=== PATIENT | male | born 1955 | race Caucasian/White ===

== ENCOUNTER 2017-06-04 12:16 | Observation (INO) ==
[2017-06-04] MEDS ORDERED: GI Cocktail 40 ML EACH PO ONE (12:28)
--- NOTE | 2017-06-04 12:32 | Emergency Department Note ---
Disposition Clinical Impression: Abdominal pain, Pancreatitis Disposition: Admitted As Inpatient Condition: Fair Referrals: Rain Landry, VASCULAR ULTRASOUND TECHNOLOGIST [Primary Care Provider] - Forms: ED Satisfaction Letter, Work/School Release Time of Disposition: 13:58 (gary corey [facility]) Abdominal Pain HPI - General Chief Complaint: ED Abdominal Pain Stated Complaint: abdominal pain Time Seen by Provider: 06/04/17 12:19 Source: patient Mode of arrival: ambulatory Limitations: no limitations Nursing Notes Reviewed: Yes Vital Signs Reviewed: Yes - History of Present Illness HPI Narrative: Patient's had a possible 24 hours of epigastric pain worsening until this morning when he got up and is radiating around into the back patient states it reminds him of when he had pancreatitis patient states that was about 2 years ago he denies fever chills N this is a states that the pain is worse with eating patient states is epigastric with radiation into the back he denies anything that makes it better anything makes it worse he recently stopped taking his proton aches and exam and a couple other medications he cannot recall the names of he states that he did not think he needed them he says now he has "maybe I do need of denies fever chills lightheadedness dizziness denies any diarrhea melena hematochezia hematemesis patient states nothing seems to be relieving the pain at this time as a result he is here for evaluation for the possibility of pancreatitis Pt Subjective Complaint: abdominal pain Onset (ago): day(s) (1) Consistency: constant Location: epigastric Pain Scale: 9 Quality: stabbing Radiation: epigastric Migration to: no migration Improves with: nothing Worsens with: eating Context: history of similar episodes (2 years ago ), other (stopped medications) Associated symptoms: Reports: nausea. Denies: vomiting, diarrhea, fever, chills , constipation, dysuria, hematemesis, hematochezia, melena, hematuria, anorexia , syncope Treatments prior to arrival: antacids (but recently stopped) - Related Data Home Medications Medication Instructions Recorded Confirmed Atenolol [Tenormin] 25 mg PO DAILY 04/07/15 06/04/17 BuPROPion 06/04/17 Allergies Allergy/AdvReac Type Severity Reaction Status Date / Time No Known Allergies Allergy Verified 06/04/17 12:17 All systems ED: reviewed and negative except as stated. Review of Systems: As Per HPI Constitutional: Denies: fever, chills Eyes: Denies: eye pain ENT ED: Denies: ear pain Cardiovascular: Denies: chest pain Respiratory: Denies: cough Gastrointestinal: Reports: abdominal pain, nausea, other (epigastric pain) Genitourinary: Denies: urgency, dysuria, frequency Musculoskeletal: Denies: back pain Integumentary: Denies: rash Neurological: Denies: headache Psychiatric: Denies: anxiety, depression Endocrine: Denies: fatigue Hematological/Lymphatic: Denies: easy bleeding Allergic/Immunologic: Denies: facial swelling Abdominal Pain PMH - Past Medical History Medical history: Reports: GERD, hypertension Psychiatric history: Reports: no psych history - Social History Smoking status: Current every day smoker Alcohol use: Reports: none Drug use: Reports: none Physical Exam - General Limitations: no limitations General appearance: alert, in no apparent distress, anxious - Head Head exam: atraumatic, normocephalic, normal inspection - Eye Eye exam: Present: normal appearance, PERRL, EOMI - ENT ENT exam: normal exam, normal oropharynx, mucous membranes moist, normal external ear exam - Neck Neck exam: Present: normal inspection, full ROM, trachea midline - Chest Chest inspection: Present: normal inspection, symmetric chest wall rise - Respiratory Respiratory exam: Present: normal lung sounds bilaterally - Cardiovascular Cardiovascular exam: Present: regular rate, normal rhythm, normal heart sounds - Abdominal Exam Abdominal exam: Present: soft, tenderness, guarding, diminished bowel sounds. Absent: mass, pulsatile mass - Extremities Exam Extremities exam: Present: normal inspection, full ROM, normal capillary refill. Absent: tenderness, pedal edema, joint swelling, calf tenderness - Expanded Lower Extremity Exam Neurovascular/Tendon exam: Present: normal capillary refill, normal fine/light touch Gait: observed and normal - Back Exam Back exam: Present: normal inspection, full ROM. Absent: muscle spasm - Neurological Exam Neurological exam: Present: alert, oriented X3, CN II-XII intact, normal gait - Psychiatric Psychiatric exam: Present: normal affect, normal mood - Skin Skin exam: Present: warm, dry, intact, normal color Course Course Narrative: Seen complaining of epigastric pain given a GI cocktail labs and CT are pending - Reevaluation(s) Reevaluation #1: Patient clinically has pancreatitis I spoke with patient he is agreed for admission patient be transferred to [facility] Dr. Gary Michelle by mouth clear liquids ice chips only Vital Signs Temperature 97.1 F L 06/04/17 12:19 Pulse Rate 64 06/04/17 12:19 Respiratory Rate 17 06/04/17 12:19 Blood Pressure 151/87 06/04/17 12:19 O2 Sat by Pulse Oximetry 99 06/04/17 12:19 Temperature 97.1 F L 06/04/17 12:19 Pulse Rate 64 06/04/17 12:19 Respiratory Rate 17 06/04/17 12:19 Blood Pressure 151/87 06/04/17 12:19 O2 Sat by Pulse Oximetry 99 06/04/17 12:19 Oxygen Delivery Oxygen Delivery Room Air Abdominal Pain - Differential Diagnosis Differential Diagnosis: Likely: abdominal pain non-specific, constipation, gastroenteritis, pancreatitis - Medical Records Medical records reviewed: Yes I reviewed the patient's medical records. - Lab Data Lab results reviewed: Yes I reviewed the patient's lab results. Result diagrams: 06/04/17 12:45 06/04/17 12:45 Lab Results 06/04/17 06/04/17 06/04/17 Range/Units 12:45 12:45 12:45 WBC 9.4 (4.3-11.1) K/mcL RBC 4.72 (4.19-5.50) M/mcL Hgb 16.0 (12.9-16.9) g/dL Hct 45.1 (37.5-50.1) % MCV 95.6 (83.0-100.0) fL MCH 33.9 H (28.0-33.3) pg MCHC 35.5 (31.6-35.5) g/dL RDW 12.6 (11.5-14.5) % Plt Count 234 (140-400) K/mcL MPV 9.6 (9.4-12.4) fL Immature Gran % 0.4 (0-4) % Seg Neutrophils % 82.9 % Lymphocytes % 8.9 % Monocytes % 7.1 % Eosinophils % 0.1 % Basophils % 0.6 % Neutrophils # 7.8 (1.6-8.9) K/mcL Lymphocytes # 0.8 (0.6-4.6) K/mcL Monocytes # 0.7 (0.0-1.3) K/mcL Eosinophils # 0.0 (0.0-0.6) K/mcL Basophils # 0.1 (0.0-0.2) K/mcL PT 10.6 (9.4-12.1) Seconds INR 1.0 APTT 31.3 (26.0-36.0) Seconds Sodium 142 (136-145) mEq/L Potassium 4.4 (3.5-4.5) mEq/L Chloride 109 (98-109) mEq/L Carbon Dioxide 24 (19-29) mEq/L BUN 15 (8-26) mg/dL Creatinine 0.81 (0.72-1.25) mg/dL Est GFR ( Amer) > 60 (> 60) Est GFR (Non-Af Amer) > 60 (> 60) BUN/Creatinine Ratio 19 (6-26) Glucose 117 H (70-99) mg/dL Calculated Osmolality 296 (280-300) Lactic Acid (0.5-2.2) mmol/L Calcium 10.0 (8.6-10.8) mg/dL Total Bilirubin 0.5 (0.2-1.2) mg/dL AST 21 (5-34) Units/L ALT 22 (0-55) Units/L Alkaline Phosphatase 126 (38-126) Units/L Serum Total Protein 7.6 (6.0-8.3) g/dL Albumin 3.9 (3.5-5.0) g/dL Globulin 3.7 H (2.4-3.5) g/dL Albumin/Globulin Ratio 1.1 (1.1-2.2) Urine Color (Yellow) Urine Clarity (Clear) Urine pH (5.0-8.0) pH Units Ur Specific [place] (1.010-1.025) Urine Protein (Neg-Trace) mg/dL Urine Glucose (UA) (Normal) mg/dL Urine Ketones (Negative) mg/dL Urine Blood (Negative) Urine Nitrite (Negative) Urine Bilirubin (Negative) Urine Urobilinogen (Normal) mg/dL Ur Leukocyte Esterase (Negative) Urine Microscopic WBC (0-3) per hpf Ur Squamous Epith Cells (None-Few) per lpf Urine Bacteria (None-Few) per hpf Urine Mucus (Few) Ur Culture Indicated? (NO) 06/04/17 06/04/17 Range/Units 12:45 13:14 WBC (4.3-11.1) K/mcL RBC (4.19-5.50) M/mcL Hgb (12.9-16.9) g/dL Hct (37.5-50.1) % MCV (83.0-100.0) fL MCH (28.0-33.3) pg MCHC (31.6-35.5) g/dL RDW (11.5-14.5) % Plt Count (140-400) K/mcL MPV (9.4-12.4) fL Immature Gran % (0-4) % Seg Neutrophils % % Lymphocytes % % Monocytes % % Eosinophils % % Basophils % % Neutrophils # (1.6-8.9) K/mcL Lymphocytes # (0.6-4.6) K/mcL Monocytes # (0.0-1.3) K/mcL Eosinophils # (0.0-0.6) K/mcL Basophils # (0.0-0.2) K/mcL PT (9.4-12.1) Seconds INR APTT (26.0-36.0) Seconds Sodium (136-145) mEq/L Potassium (3.5-4.5) mEq/L Chloride (98-109) mEq/L Carbon Dioxide (19-29) mEq/L BUN (8-26) mg/dL Creatinine (0.72-1.25) mg/dL Est GFR ( Amer) (> 60) Est GFR (Non-Af Amer) (> 60) BUN/Creatinine Ratio (6-26) Glucose (70-99) mg/dL Calculated Osmolality (280-300) Lactic Acid 0.9 (0.5-2.2) mmol/L Calcium (8.6-10.8) mg/dL Total Bilirubin (0.2-1.2) mg/dL AST (5-34) Units/L ALT (0-55) Units/L Alkaline Phosphatase (38-126) Units/L Serum Total Protein (6.0-8.3) g/dL Albumin (3.5-5.0) g/dL Globulin (2.4-3.5) g/dL Albumin/Globulin Ratio (1.1-2.2) Urine Color Yellow (Yellow) Urine Clarity Clear (Clear) Urine pH 5.5 (5.0-8.0) pH Units Ur Specific [place] >= 1.030 H (1.010-1.025) Urine Protein 30 H (Neg-Trace) mg/dL Urine Glucose (UA) Normal (Normal) mg/dL Urine Ketones Trace H (Negative) mg/dL Urine Blood Negative (Negative) Urine Nitrite Negative (Negative) Urine Bilirubin Small H (Negative) Urine Urobilinogen Normal (Normal) mg/dL Ur Leukocyte Esterase Negative (Negative) Urine Microscopic WBC 0-3 (0-3) per hpf Ur Squamous Epith Cells Few (None-Few) per lpf Urine Bacteria Few (None-Few) per hpf Urine Mucus Many H (Few) Ur Culture Indicated? NO (NO) - Radiology Data Radiology results reviewed: Yes I reviewed the patient's radiology results. - EKG Data EKG attestation: Yes I reviewed and interpreted this EKG. EKG results narrative: Normal sinus rhythm rate 60 CT 160 QRS 84 QT 364 axis [id number] Q waves present in the septal leads Critical Care Time Critical Care Time: No
[2017-06-04 12:54] LABS: Basophils # 0.1 K/mcL (0.0-0.2); Basophils % 0.6 %; Eosinophils % 0.1 %; Hematocrit 45.1 % (37.5-50.1); Immature Granulocytes % 0.4 % (0-4); Lymphocytes # 0.8 K/mcL (0.6-4.6); Lymphocytes % 8.9 %; Mean Corpuscular HGB Conc 35.5 g/dL (31.6-35.5); Mean Corpuscular Hemoglobin 33.9 pg (28.0-33.3); Mean Corpuscular Volume 95.6 fL (83.0-100.0); Mean Platelet Volume 9.6 fL (9.4-12.4); Monocytes # 0.7 K/mcL (0.0-1.3); Monocytes % 7.1 %; Neutrophils # 7.8 K/mcL (1.6-8.9); Platelet Count 234 K/mcL (140-400); Red Blood Count 4.72 M/mcL (4.19-5.50); Red Cell Distribution Width 12.6 % (11.5-14.5); Segmented Neutrophils % 82.9 %
[2017-06-04 12:56] LABS: Prothrombin Time 10.6 Seconds (9.4-12.1)
[2017-06-04 12:58] LABS: Activated Partial Thrombo Time 31.3 Seconds (26.0-36.0)
[2017-06-04 13:06] LABS: Alanine Aminotransferase 22 Units/L (0-55); Albumin 3.9 g/dL (3.5-5.0); Albumin/Globulin Ratio 1.1 (1.1-2.2); Alkaline Phosphatase 126 Units/L (38-126); Aspartate Amino Transferase 21 Units/L (5-34); BUN/Creatinine Ratio 19 (6-26); Bilirubin,Total 0.5 mg/dL (0.2-1.2); Blood Urea Nitrogen 15 mg/dL (8-26); Carbon Dioxide 24 mEq/L (19-29); Chloride 109 mEq/L (98-109); Globulin 3.7 g/dL (2.4-3.5); Glucose 117 mg/dL (70-99); Osmolality,Calculated 296 (280-300); Potassium 4.4 mEq/L (3.5-4.5); Sodium 142 mEq/L (136-145); Total Protein 7.6 g/dL (6.0-8.3); eGFR For African Americans > 60 (> 60); eGFR For Non-African Americans > 60 (> 60)
[2017-06-04 13:18] LABS: Bilirubin,Urine Small (Negative); Blood,Urine Negative (Negative); Clarity,Urine Clear (Clear); Color,Urine Yellow (Yellow); Glucose,Urine (UA) Normal (Normal); Ketones,Urine Trace mg/dL (Negative); Leukocyte Esterase,Urine Negative (Negative); Nitrite,Urine Negative (Negative); PH,Urine 5.5 pH Units (5.0-8.0); Protein,Urine 30 mg/dL (Neg-Trace); Specific Gravity,Urine >= 1.030 (1.010-1.025); Urobilinogen,Urine Normal (Normal)
[2017-06-04 13:25] LABS: Squamous Epithelial Cell,Urine Few per lpf (None-Few); WBC,Urine 0-3 per hpf (0-3)
[2017-06-04 13:26] LABS: Bacteria,Urine Few per hpf (None-Few); Mucus,Urine Many (Few)
[2017-06-04] MEDS ORDERED: Naloxone 0.4 MG/ML INJ IVP PRN ×2 (14:21)
[2017-06-04] MEDS ORDERED: Thiamine (B-1) 100 MG in D5% in Water 50 ML IVPB ONE (14:21)
[2017-06-04] MEDS ORDERED: MVI, adult with vitamin K 10 ML in 0.9 % Sodium Chloride 1,000 ML IVC ONE (14:21)
[2017-06-04] MEDS ORDERED: Pantoprazole 40 MG VIAL IVP ONE (14:21)
[2017-06-04] MEDS ORDERED: *HR* HYDROmorphone (PF) 1 MG/ML SYRINGE IVP ONE (14:21)
[2017-06-04] MEDS ORDERED: Ondansetron 4 MG/2 ML VIAL IVP ONE (14:21)
[2017-06-04] MEDS ORDERED: 0.9 % Sodium Chloride 1,000 ML IVC SCH (14:21)
[2017-06-04] MEDS ORDERED: Ondansetron 4 MG/2 ML VIAL IVP PRN (14:21)
[2017-06-04] MEDS ORDERED: Magnesium Sulfate 2 GM in D5% in Water 100 ML IVPB ONE (14:30)
[2017-06-04] MEDS: 0.9 % Sodium Chloride 1,000 ML IVC SCH ×2 (14:54→21:48)
[2017-06-04] MEDS: *HR* HYDROmorphone (PF) 1 MG/ML SYRINGE IVP PRN (19:00)
[2017-06-05] MEDS: 0.9 % Sodium Chloride 1,000 ML IVC SCH (05:31)
[2017-06-05 06:54] LABS: Basophils % 0.4 %; Eosinophils # 0.1 K/mcL (0.0-0.6); Eosinophils % 0.9 %; Hemoglobin 13.8 g/dL (12.9-16.9); Immature Granulocytes % 0.3 % (0-4); Lymphocytes % 14.7 %; Mean Corpuscular HGB Conc 35.4 g/dL (31.6-35.5); Mean Corpuscular Hemoglobin 34.2 pg (28.0-33.3); Mean Corpuscular Volume 96.5 fL (83.0-100.0); Mean Platelet Volume 10.3 fL (9.4-12.4); Monocytes # 0.7 K/mcL (0.0-1.3); Monocytes % 9.6 %; Neutrophils # 5.2 K/mcL (1.6-8.9); Platelet Count 181 K/mcL (140-400); Red Blood Count 4.04 M/mcL (4.19-5.50); Red Cell Distribution Width 12.6 % (11.5-14.5); Segmented Neutrophils % 74.1 %
[2017-06-05 07:13] LABS: BUN/Creatinine Ratio 15 (6-26); Blood Urea Nitrogen 11 mg/dL (8-26); Calcium 8.6 mg/dL (8.6-10.8); Carbon Dioxide 22 mEq/L (19-29); Chloride 110 mEq/L (98-109); Glucose 84 mg/dL (70-99); Lipase 561 Units/L (8-78); Osmolality,Calculated 291 (280-300); Potassium 3.8 mEq/L (3.5-4.5); Sodium 141 mEq/L (136-145); Triglycerides 101 mg/dL (< 150); eGFR For African Americans > 60 (> 60); eGFR For Non-African Americans > 60 (> 60)
[2017-06-05] MEDS: *HR* HYDROmorphone (PF) 1 MG/ML SYRINGE IVP PRN ×3 (07:35→21:18)
[2017-06-05] MEDS: Multivit/Ca/Min/Fe/FA 1 TAB TABLET PO SCH (09:07)
[2017-06-05] MEDS: Thiamine (B-1) 100 MG TABLET PO SCH (09:08)
[2017-06-05] MEDS: Folic Acid 1 MG TABLET PO SCH (09:08)
[2017-06-05] MEDS: Pantoprazole 40 MG VIAL IVP SCH (09:08)
--- NOTE | 2017-06-05 11:39 | Internal Med History&Physical ---
Date of Encounter: 06/05/17 Time of Encounter: 11:05 Assessment and Plan (1) Pancreatitis Current visit: Yes Status: Acute His abdominal pain has significantly improved since admission. Will continue with IV fluids and analgesics when necessary. Will advance diet as tolerated. Qualifiers: Chronicity: acute Pancreatitis type: unspecified pancreatitis type Acute pancreatitis complication: no infection or necrosis Qualified Code(s): K85.90 - Acute pancreatitis without necrosis or infection, unspecified Internal Medicine - H&P: HPI Chief complaint: Abdominal pain Admitted From: Home Plans for Post Hospital Care: Home History of present illness: Mr. 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 Pain progressively worsened to level 10/10 so he decided to come to emergency room. He was evaluated and found to have evidence of acute on chronic pancreatitis. He was admitted to [facility] floor for ongoing care needs. He states he had a previous episode of pancreatitis in 2014 and was told it was possibly due to H. pylori. He has seen Dr. Hunter and reports having EGD and colonoscopy done. He reports no liver or gallbladder disease. He drinks an occasional one to 2 beers and reports the evening of June 01 he had 2 beers. He does not have hypertriglyceridemia. He states his abdominal pain has decreased to 5/10. He has no nausea or vomiting. Past Med Surg Social Fam HX - Past Medical History Medical history: GERD, hypertension Psychiatric history: no psych history - Past Surgical History Surgical History: no surgical history - Social History Smoking Status: Current every day smoker Packs per day: 0.5 Smokeless Tobacco Status: No Alcohol use: none Drug use: none - Family History Father Living Status: Hx Family Cancer: Yes Mother Living Status: Hx Family Neuromuscular Disorders: Yes (parkinson's) Internal Medicine - H&P: Meds Atenolol [Tenormin] 25 mg PO DAILY 04/07/15 [History] BuPROPion 150 mg PO DAILY 06/04/17 [History] 3 Allergy/AdvReac Type Severity Reaction Status Date / Time No Known Allergies Allergy Verified 06/04/17 12:17 All Systems PM: A 10-system review of systems was performed and is negative for pertinent findings except as documented above in the HPI. Review of systems: Gen.: He states his weight has been stable the past year Cardiovascular: Has history of hypertension but denies [place] heart failure angina DVT or pulmonary embolus Respiratory: He smokes since age 11 up to 3 packs per day. He thinks he had PFTs several years ago. He denies chronic lung disease and does not use home oxygen. GI: As per history of present illness : He denies hematuria dysuria or kidney stones Neurologic: He denies large distribution strokes or seizures. Endocrine: He denies diabetes thyroid disease or hyperlipidemia Hematology/oncology: Denies blood disorders cancers or anemia. 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 He denies other significant arthritis gout or other bone joint or muscle disorders. - Constitutional Vitals: Temp Pulse Resp BP Pulse Ox 98.3 F 68 17 125/75 98 06/05/17 07:04 06/05/17 07:04 06/05/17 07:04 06/05/17 07:04 06/05/17 09:17 Exam: Gen.: He is a well-developed well-nourished male who appears in no acute distress at present time HEENT: Head is atraumatic and normocephalic. Eyes: EOMI. There is no scleral icterus. Mouth: Mucosa is moist. Neck: Supple and nontender. There is no thyromegaly or adenopathy noted. Heart: Regular without murmurs gallops or ectopics Lungs: No wheezes or crackles are heard. Abdomen: Bowel sounds are present but diminished. There is mild tenderness to moderate palpation of the abdomen. No masses or guarding are noted. Extremities: There is no cyanosis edema or clubbing noted. Dorsalis pedis and posterior tibial pulses are trace palpable bilaterally. Neurologic: Mental status: He is talkative and a good historian. Cranial nerves : Smile is symmetric. Forehead wrinkles bilaterally. Tongue protrudes midline. EOMI. Motor: There is no pronator drift. Cerebellar: Finger to nose is intact bilaterally. Skin: Warm and dry Internal Med - H&P Results - Labs CBC & Chem 7: 06/05/17 05:34 06/05/17 05:34 Labs: Short CBC 06/05/17 Range/Units 05:34 WBC 7.0 (4.3-11.1) K/mcL Hgb 13.8 D (12.9-16.9) g/dL Hct 39.0 (37.5-50.1) % Plt Count 181 (140-400) K/mcL Neutrophils # 5.2 (1.6-8.9) K/mcL BMP 06/05/17 05:34 Sodium 141 Potassium 3.8 Chloride 110 H Carbon Dioxide 22 BUN 11 Creatinine 0.74 Glucose 84 Calcium 8.6
[2017-06-05] MEDS: 0.45 % Sodium Chloride w/KCl 20 MEQ/1,000 ML MLS IVC SCH ×2 (12:46→21:25)
[2017-06-06 05:58] LABS: Basophils % 0.6 %; Eosinophils # 0.1 K/mcL (0.0-0.6); Eosinophils % 1.2 %; Hematocrit 40.1 % (37.5-50.1); Hemoglobin 14.1 g/dL (12.9-16.9); Immature Granulocytes % 0.1 % (0-4); Lymphocytes # 1.2 K/mcL (0.6-4.6); Lymphocytes % 16.8 %; Mean Corpuscular HGB Conc 35.2 g/dL (31.6-35.5); Mean Corpuscular Hemoglobin 33.8 pg (28.0-33.3); Mean Corpuscular Volume 96.2 fL (83.0-100.0); Mean Platelet Volume 10.3 fL (9.4-12.4); Monocytes # 0.7 K/mcL (0.0-1.3); Monocytes % 9.4 %; Platelet Count 180 K/mcL (140-400); Red Blood Count 4.17 M/mcL (4.19-5.50); Red Cell Distribution Width 12.4 % (11.5-14.5); Segmented Neutrophils % 71.9 %
[2017-06-06 06:15] LABS: Phosphorous 2.6 mg/dL (2.3-4.7)
[2017-06-06 07:23] VITALS: BP 124/83
[2017-06-06] MEDS: 0.45 % Sodium Chloride w/KCl 20 MEQ/1,000 ML MLS IVC SCH (07:40)
[2017-06-06] MEDS: Thiamine (B-1) 100 MG TABLET PO SCH (07:56)
[2017-06-06] MEDS: Folic Acid 1 MG TABLET PO SCH (07:56)
[2017-06-06] MEDS: Pantoprazole 40 MG VIAL IVP SCH (07:56)
[2017-06-06] MEDS: Multivit/Ca/Min/Fe/FA 1 TAB TABLET PO SCH (07:57)
--- NOTE | 2017-06-06 10:07 | Discharge Summary ---
Date of Encounter: 06/06/17 Time of Encounter: 10:00 - Discharge Diagnosis (1) Pancreatitis Priority: Primary Status: Acute Qualifiers: Chronicity: acute Pancreatitis type: unspecified pancreatitis type Acute pancreatitis complication: no infection or necrosis Qualified Code(s): K85.90 - Acute pancreatitis without necrosis or infection, unspecified - Discharge Medications Home Medications: Atenolol [Tenormin] 25 mg PO DAILY 04/07/15 [History] BuPROPion 300 mg PO DAILY 06/04/17 [History] Allergies/Adverse Reactions: 3 Allergy/AdvReac Type Severity Reaction Status Date / Time No Known Allergies Allergy Verified 06/04/17 12:17 Date of admission: 06/04/17 14:19 Primary care physician: Rain Landry CNP - Patient Status Disposition: Home, Self-Care Condition: Fair Functional capacity at discharge: independent ambulation Overall status at discharge: patient is progressing back to baseline - Discharge Instructions Follow Up With: Rain Landry CNP [Primary Care Provider] - 1 week - Diet and Activity Activity: resume usual activities as tolerated Diet: advance to your usual diet Hospital course: Mr. 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 Pain progressively worsened to level 10/10 so he decided to come to emergency room. He was evaluated and found to have evidence of acute on chronic pancreatitis. He was admitted to [facility] for ongoing care needs. Initial orders were written by the emergency room physician. I saw him on June 05 and performed a history and physical. His abdominal pain had significantly improved when I saw him initially. He was continued on IV fluids and analgesics when necessary. His diet was advanced and tolerated well. When I saw him on June 06 he stated the pain was essentially completely gone. He wished to be discharged home. He will follow with his PCP Rain Landry CNP within 1 week. He will return to his usual work duties 2016. - Time Spent with Patient Total time spent providing and/or coordinating discharge services: - Constitutional Vitals: Temp Pulse Resp BP Pulse Ox 98.6 F 62 18 124/83 98 06/06/17 07:23 06/06/17 07:23 06/06/17 07:23 06/06/17 07:23 06/06/17 07:23
--- NOTE | 2017-06-07 11:26 | Electrocardiograph Report ---
[place] [id number] Test Date: 2017-06-04 Pat Name: Fransico Hull Department: [id number] Room: [facility] Gender: M Reprographics Technician: Aleksandr : 1955 Requested By: Pamela Pendleton Order Number: [id number] Reading MD: Rachelle Vernon Measurements Intervals [place] Rate: 60 P: 70 MS: 160 QRS: 78 QRSD: 84 T: 64 QT: 364 QTc: 364 Interpretive Statements SINUS RHYTHM SEPTAL MYOCARDIAL INFARCTION, PROBABLY OLD Electronically Signed On 06-07-2017 11:24:14 EDT by Rachelle Vernon
== END 2017-06-06 10:40 | disposition home or self-care (01) ==
LOC: EMEROOPIK 12:16 → INPPIK 12:16
PROVIDERS: ADMIT Internal Medicine; ATTEND Internal Medicine